=== PATIENT | male | born 1950 | race Caucasian/White ===

== ENCOUNTER → 2016-08-30 | Outpatient (CLI) | payer MEDICARE, BC ==
--- NOTE | ~2016-08-30 | TH ---
Unit #: [id number] #: [id number] Patient: BRAYAN GUAMAN [id number] [address] [address] [id number] O MR#: [id number] NAME: BRAYAN GUAMAN : 1950 SEX: M STUDY DATE/TIME: 08/30/2016 UNIT: [facility] ROOM: STUDY DESCRIPTION: Attending Physician: Davon Meehan M.D. Referring Physician: Davon Meehan M.D. Primary Care Physician: Davon Meehan M.D. CARDIOLOGY REPORT EXAM Exercise Cardiolite stress test, nuclear portion. PROCEDURE Using technetium 99m labeled Cardiolite, rest and stress SPECT images were obtained. Multiple SPECT images were obtained in various views including horizontal and vertical long axis and short axis views of the left ventricle. Images were obtained by gated SPECT method. The patient was administered 10.88 mCi of Cardiolite at rest. Patient was administered 31.4 mCi of Cardiolite at peak exercise. Total exercise time is 7 minutes and 30 seconds. On the stress images, there is normal perfusion noted. The rest images showed normal perfusion. Comparing rest and stress images, there is no stress-induced ischemia noted. The left ventricular ejection fraction is calculated to be 62%. There is no focal wall motion abnormality seen. CONCLUSION 1. No stress-induced ischemia noted. 2. The left ventricular ejection fraction is calculated to be 62%. 3. There is no focal wall motion abnormality seen. 4. Normal exercise Cardiolite stress test. Dictated by... Sam Angulo TD: 08/30/2016 13:55 JOB #: [id number] CARDIOLOGY REPORT Page 1 of 1 X Michelle Newberry MD <ELECTRONICALLY SIGNED> 11/23/16 1429 CARDIOLOGY REPORT
--- NOTE | ~2016-08-30 | ST ---
Unit #: [id number] #: [id number] Patient: BRAYAN GUAMAN [id number] [address] [place], [place] [address] [id number] O MR#: [id number] NAME: BRAYAN GUAMAN : 1950 SEX: M STUDY DATE/TIME: 08/30/2016 UNIT: [facility] ROOM: STUDY DESCRIPTION: Exercise stress test Attending Physician: Davon Meehan M.D. Referring Physician: Davon Meehan M.D. Primary Care Physician: Davon Meehan M.D. CARDIOLOGY REPORT PROCEDURE PERFORMED Exercise Cardiolite stress test. PROCEDURE BASELINE EKG: Normal sinus rhythm with ventricular rate 71 beats per minute, first-degree AV block, slow R wave progression, low voltage in inferior leads. Patient walked on the treadmill for 7 minutes and 30 seconds utilizing the Manny protocol, achieving a workload of 9.3 METS. He achieved 90% of the maximum target heart rate at 141 beats per minute with a maximum blood pressure response of 190/90 mmHg. EKG during the test was equivocal to baseline. Some nonspecific ST-T wave abnormalities in lateral leads. Patient had a rare premature atrial contraction. Patient had no complaints of chest pain, palpitations or dizziness. Had increased shortness of breath and fatigue, which resolved in the recovery phase. IMPRESSION 1. Functional class 3 with a workload of 9.3 METS. 2. He achieved 90% of maximum target heart rate at 141 beats per minute with a hypertensive blood pressure response of 190/90 mmHg. It is noted, at the end of the recovery phase, patient's blood pressure was down to 154/75 mmHg. 3. EKG during the test was equivocal to baseline. Some nonspecific ST-T wave abnormalities in lateral leads. 4. Patient had no complaints of chest pain, palpitations or dizziness. Had increased shortness of breath and fatigue, which resolved in recovery phase. 5. Cardiolite was injected at maximum target heart rate. Radionuclide test pending. Please correlate with nuclear images. Dictated by... Mady Luke A.P.R.N. for Sam Angulo/pj Unit #: [id number] #: [id number] Patient: BRAYAN GUAMAN TD: 08/30/2016 10:36 JOB #: [id number] CARDIOLOGY REPORT Page 1 of 1 X Mady Luke APRN CARDIOLOGY REPORT
== END | disposition home or self-care (01) ==
LOC: CNUC 07:32
DX: R07.9 Chest pain, unspecified (principal)
CPT/HCPCS: 78452; 93017; A9500